=== PATIENT | male | born 1985 | race Caucasian/White ===

== ENCOUNTER 2023-10-28 10:33 | Emergency (ER) | payer SELFPAY ==
[~2023-10-28] VITALS: Ht 185.4 cm; Wt 74.8 kg
[~2023-10-28 10:33] MED LIST: AUGMENTIN 875875 MG PO; CEPHALEXIN500 M1 PO; HYDROCODONE BIT1 T11 PO; KEFLEX500 MG PO; Motrin,Rufen800 MG PO
[2023-10-28 11:30] LABS: HEMATOCRIT 46.2 % (42.0-52.0); MANUAL DIFF REFLEX YES; MEAN CORPUSCULAR HGB 31.8 pg (27.0-31.0); MEAN CORPUSCULAR HGB CONC 36.1 g/dl (33.0-37.0); MEAN PLATELET VOLUME 9.7 fl (9.6-12.3); PLATELET COUNT AUTOMATED 175 10*3/uL (130-400); RED BLOOD COUNT 5.25 10*6/uL (4.50-5.90); RED CELL DISTRI WIDTH 11.9 % (0-14.5); WHITE BLOOD COUNT 3.9 10*3/uL (4.8-10.8)
[2023-10-28 11:42] LABS: ACT PARTIAL THROMBO TIME 25.9 SECONDS (20.0-32.1)
[2023-10-28 11:53] LABS: ALKALINE PHOSPHATASE 94 U/L (46-116); BUN 13 mg/dl (9-23); CHLORIDE 98 mmol/L (98-107); LIPASE 26 U/L (12-53); POTASSIUM 4.1 mmol/L (3.4-5.1); SGPT/ALT 11 U/L (5-49); TOTAL PROTEIN 7.2 gm/dL (6.0-8.0)
[2023-10-28 12:04] LABS: TOTAL CELLS COUNTED 100 #CELLS
[2023-10-28 12:05] LABS: PLATELET SUFFICIENCY NORMAL (NORMAL)
[2023-10-28 12:47] LABS: BILIRUBIN Negative (Negative); BLOOD Negative (Negative); CLARITY Clear (Clear); COLOR Yellow (Yellow); GLUCOSE 3+ (Negative); KETONE 4+ (Negative); LEUKO ESTERASE Negative (Negative); NITRITE Negative (Negative); PH 5.5 (4.5-8.0); SPECIFIC GRAVITY >= 1.030 (1.001-1.030); UROBILINOGEN 0.2 E.U./dl (0.0-1.0)
[2023-10-28 12:57] LABS: BACTERIA TRACE; EPITHELIAL CELLS 0-2; MUCOUS 1+; RBC 0-2 rbc/hpf (0-2); WBC 0-2 wbc/hpf (0-5)
== END 2023-10-28 14:01 | disposition home or self-care (01) ==
LOC: ED 10:33
PROVIDERS: Emergency Medicine
DX: S30.22XA Contusion of scrotum and testes, initial encounter (principal); X58.XXXA Exposure to other specified factors, initial encounter; Y93.89 Activity, other specified; Y92.89 Other specified places as the place of occurrence of the external cause; Y99.8 Other external cause status

== ENCOUNTER 2023-12-17 11:59 | Inpatient (IN) | payer SELFPAY ==
[~2023-12-17] VITALS: Ht 182.8 cm; Wt 72.6 kg
[2023-12-17 12:18] VITALS: BP 117/74
[2023-12-17] MEDS ORDERED: NOVOLIN R100 UNIT/1 SQ (12:31)
[2023-12-17 12:43] LABS: BASO # 0.1 10*3/uL (0.0-0.1); BASO % 0.3 % (0.0-1.0); HEMATOCRIT 46.5 % (42.0-52.0); LYMPH # 1.1 10*3/uL (1.3-4.4); LYMPH % 7.2 % (27.0-41.0); MEAN CELL VOLUME 92.3 fl (80.0-94.0); MEAN CORPUSCULAR HGB 31.3 pg (27.0-31.0); MEAN PLATELET VOLUME 9.3 fl (9.6-12.3); MONO # 0.9 10*3/uL (0.1-1.0); MONO % 5.6 % (3.0-9.0); NEUT # 13.3 10*3/uL (2.3-7.9); NEUT % 86.5 % (47.0-73.0); PLATELET COUNT AUTOMATED 246 10*3/uL (130-400); RED BLOOD COUNT 5.04 10*6/uL (4.50-5.90); RED CELL DISTRI WIDTH 12.2 % (0-14.5); WHITE BLOOD COUNT 15.3 10*3/uL (4.8-10.8)
[2023-12-17 13:11] LABS: ALKALINE PHOSPHATASE 114 U/L (46-116); BUN 19 mg/dl (9-23); CHLORIDE 96 mmol/L (98-107); LIPASE 23 U/L (12-53); POTASSIUM 4.8 mmol/L (3.4-5.1); SGPT/ALT 18 U/L (5-49); TOTAL PROTEIN 7.5 gm/dL (6.0-8.0)
[2023-12-17 14:01] LABS: BILIRUBIN Negative (Negative); BLOOD Negative (Negative); CLARITY Clear (Clear); COLOR Yellow (Yellow); GLUCOSE 3+ (Negative); KETONE 3+ (Negative); LEUKO ESTERASE Negative (Negative); NITRITE Negative (Negative); PH 5.5 (4.5-8.0); SPECIFIC GRAVITY >= 1.030 (1.001-1.030); UROBILINOGEN 0.2 E.U./dl (0.0-1.0)
[2023-12-17 16:07] VITALS: BP 107/58
[2023-12-17 20:00] VITALS: BP 107/58
[2023-12-17 21:36] LABS: BUN 14 mg/dl (9-23); CHLORIDE 104 mmol/L (98-107); POTASSIUM 4.2 mmol/L (3.4-5.1)
[2023-12-18 07:03] LABS: BASO % 0.2 % (0.0-1.0); EOS % 0.1 % (1.0-4.0); HEMATOCRIT 42.8 % (42.0-52.0); LYMPH # 1.5 10*3/uL (1.3-4.4); MEAN CELL VOLUME 94.1 fl (80.0-94.0); MEAN CORPUSCULAR HGB CONC 32.9 g/dl (33.0-37.0); MEAN PLATELET VOLUME 9.4 fl (9.6-12.3); MONO # 0.7 10*3/uL (0.1-1.0); MONO % 5.6 % (3.0-9.0); NEUT # 10.4 10*3/uL (2.3-7.9); NEUT % 81.7 % (47.0-73.0); PLATELET COUNT AUTOMATED 198 10*3/uL (130-400); RED BLOOD COUNT 4.55 10*6/uL (4.50-5.90); RED CELL DISTRI WIDTH 12.2 % (0-14.5); WHITE BLOOD COUNT 12.7 10*3/uL (4.8-10.8)
[2023-12-18 07:17] LABS: ACT PARTIAL THROMBO TIME 24.8 SECONDS (20.0-32.1)
[2023-12-18 07:35] LABS: ALKALINE PHOSPHATASE 95 U/L (46-116); BUN 14 mg/dl (9-23); CHLORIDE 102 mmol/L (98-107); CHOLESTEROL 163 mg/dL (<200); FREE T4 1.19 ng/dl (0.89-1.76); LDL CHOLESTEROL 80 mg/dL (9-159); POTASSIUM 4.2 mmol/L (3.4-5.1); SGPT/ALT 13 U/L (5-49); TOTAL PROTEIN 6.2 gm/dL (6.0-8.0); TRIGLYCERIDES 147 mg/dl (<150)
[2023-12-18 07:45] LABS: VITAMIN D, 25-HYDROXY 26.5 ng/mL (30-100)
[2023-12-18 08:00] VITALS: BP 136/80
[2023-12-18 10:00] VITALS: BP 111/62
[2023-12-18 12:00] VITALS: BP 111/62
[2023-12-18 14:41] LABS: BUN 13 mg/dl (9-23); CHLORIDE 105 mmol/L (98-107); POTASSIUM 3.6 mmol/L (3.4-5.1)
[2023-12-18 16:00] VITALS: BP 135/76
[2023-12-18 18:00] LABS: BUN 12 mg/dl (9-23); CHLORIDE 107 mmol/L (98-107); POTASSIUM 3.4 mmol/L (3.4-5.1)
[2023-12-18 20:00] VITALS: BP 120/67
[2023-12-19] VITALS: BP 124/82
[2023-12-19 04:00] VITALS: BP 125/92
[2023-12-19 04:45] LABS: BUN 9 mg/dl (9-23); CHLORIDE 105 mmol/L (98-107); POTASSIUM 2.9 mmol/L (3.4-5.1)
[2023-12-19 08:00] VITALS: BP 120/74
[2023-12-19 10:54] LABS: BUN 9 mg/dl (9-23); CHLORIDE 102 mmol/L (98-107); POTASSIUM 3.4 mmol/L (3.4-5.1)
[2023-12-19 12:00] VITALS: BP 135/83
[2023-12-19 16:00] VITALS: BP 124/85
[2023-12-19 17:12] LABS: BUN 9 mg/dl (9-23); CHLORIDE 103 mmol/L (98-107); POTASSIUM 3.7 mmol/L (3.4-5.1)
[2023-12-19 20:00] VITALS: BP 107/67
[2023-12-20] VITALS: BP 118/86
[2023-12-20 04:00] VITALS: BP 122/88
[2023-12-20 06:22] LABS: ALKALINE PHOSPHATASE 93 U/L (46-116); BUN 10 mg/dl (9-23); CHLORIDE 99 mmol/L (98-107); POTASSIUM 3.2 mmol/L (3.4-5.1); SGPT/ALT 11 U/L (5-49); TOTAL PROTEIN 6.1 gm/dL (6.0-8.0)
[2023-12-20 08:00] VITALS: BP 135/85
[2023-12-20] MEDS ORDERED: HUMALOG100 UNIT/1 SC (11:50)
[2023-12-20] MEDS ORDERED: LANTUS SOL100 UNIT/1 SC (11:50)
[2023-12-20] MEDS ORDERED: VITAMIN D325 MCG PO (11:51)
[2023-12-20] MEDS ORDERED: K-TAB20 MEQ PO (11:51)
== END 2023-12-20 12:39 | disposition home or self-care (01) | DRG 638 ==
LOC: ED 11:59 → ICCU 15:41 → EDHOLD 15:41 → ICCU 12-18 09:38
PROVIDERS: Internal Medicine; Nurse Practitioner Family; Student in an Organized Health Care Education/Training Program; ADMIT Internal Medicine; ATTEND Internal Medicine
DX: E13.10 Other specified diabetes mellitus with ketoacidosis without coma (principal); E87.1 Hypo-osmolality and hyponatremia; D72.825 Bandemia; Z79.4 Long term (current) use of insulin

== ENCOUNTER → 2024-02-13 | Outpatient (CLI) | payer SELFPAY ==
[~2024-02-13] MED LIST changes: +HUMALOG100 UNIT/1 SC; +K-TAB20 MEQ PO; +LANTUS SOL100 UNIT/1 SC; +NOVOLIN R100 UNIT/1 SQ; +VITAMIN D325 MCG PO
[2024-02-13 11:59] LABS: URINE CREATININE RANDOM 79.01 mg/dL
== END | disposition home or self-care (01) ==
LOC: RESCLI 09:27 → LAB 09:27
PROVIDERS: Student in an Organized Health Care Education/Training Program; ATTEND Internal Medicine
DX: E11.8 Type 2 diabetes mellitus with unspecified complications (principal); E55.9 Vitamin D deficiency, unspecified; N52.9 Male erectile dysfunction, unspecified; Z98.890 Other specified postprocedural states; Z79.899 Other long term (current) drug therapy

== ENCOUNTER 2024-06-12 09:02 | Inpatient (IN) | payer SELFPAY ==
[~2024-06-12] VITALS: Ht 185.4 cm; Wt 73.9 kg
[2024-06-12] MEDS ORDERED: SODIUM CHLORIDE 0.9% 1,000 ML IV ONE ×3 (09:45→11:15)
[2024-06-12 09:51] VITALS: BP 91/55
[2024-06-12 10:05] LABS: HEMATOCRIT 53.5 % (42.0-52.0); MEAN CELL VOLUME 101.7 fl (80.0-94.0); MEAN CORPUSCULAR HGB 31.7 pg (27.0-31.0); MEAN CORPUSCULAR HGB CONC 31.2 g/dl (33.0-37.0); MEAN PLATELET VOLUME 10.2 fl (9.6-12.3); PLATELET COUNT AUTOMATED 379 10*3/uL (130-400); RED BLOOD COUNT 5.26 10*6/uL (4.50-5.90); RED CELL DISTRI WIDTH 12.4 % (0-14.5); WHITE BLOOD COUNT 24.9 10*3/uL (4.8-10.8)
[2024-06-12 10:13] LABS: MANUAL DIFF REFLEX YES
[2024-06-12 10:31] LABS: BASOPHILS 1 % (0-1); BURR CELLS FEW; PLATELET SUFFICIENCY NORMAL (NORMAL); POLYCHROMASIA SLIGHT; TOTAL CELLS COUNTED 100 #CELLS
[2024-06-12 10:33] LABS: ALKALINE PHOSPHATASE 150 U/L (46-116); BUN 22 mg/dl (9-23); CHLORIDE 89 mmol/L (98-107); LIPASE 58 U/L (12-53); POTASSIUM 5.9 mmol/L (3.4-5.1); SGPT/ALT 28 U/L (5-49); TOTAL PROTEIN 7.8 gm/dL (6.0-8.0)
[2024-06-12] MEDS ORDERED: INSULIN REGULAR, HUMAN 1 UNIT/0.01 ML IV ONE (10:45)
[2024-06-12] MEDS ORDERED: POTASSIUM CHLORIDE 20 MEQ/100 ML BAG IV PRN (11:15)
[2024-06-12] MEDS ORDERED: POTASSIUM CHLORIDE 20 MEQ TAB PO PRN (11:15)
[2024-06-12] MEDS ORDERED: SODIUM CHLORIDE 0.9% 1,000 ML IV SCH (11:15)
[2024-06-12] MEDS ORDERED: INSULIN REGULAR IN 0.9 % NACL 100 ML IV SCH (11:15)
[2024-06-12] MEDS ORDERED: SODIUM CHLORIDE 0.9% 2,000 ML IV ONE (11:29)
[2024-06-12] MEDS ORDERED: Ondansetron Hydrochloride 4 MG/2 ML VIAL IV PRN (12:05)
[2024-06-12 12:17] LABS: BILIRUBIN Negative (Negative); BLOOD Trace-Lysed (Negative); CLARITY Clear (Clear); COLOR Yellow (Yellow); GLUCOSE 3+ (Negative); KETONE 3+ (Negative); LEUKO ESTERASE Negative (Negative); NITRITE Negative (Negative); PH 5.5 (4.5-8.0); SPECIFIC GRAVITY 1.025 (1.001-1.030); UROBILINOGEN 0.2 E.U./dl (0.0-1.0)
[2024-06-12 12:31] LABS: BACTERIA 1+; MUCOUS 1+; RBC 0-2 rbc/hpf (0-2)
[2024-06-12 13:19] LABS: BUN 25 mg/dl (9-23); CHLORIDE 99 mmol/L (98-107); POTASSIUM 5.2 mmol/L (3.4-5.1)
[2024-06-12] MEDS ORDERED: POTASSIUM CL/0.9% SODIUM CL 1,000 ML IV SCH (14:55)
[2024-06-12 15:06] LABS: BUN 18 mg/dl (9-23); CHLORIDE 107 mmol/L (98-107); POTASSIUM 4.5 mmol/L (3.4-5.1)
[2024-06-12 16:00] VITALS: BP 102/59
[2024-06-12] MEDS ORDERED: Promethazine Hydrochloride 25 MG/ML VIAL IV PRN (16:50)
[2024-06-12] MEDS ORDERED: POTASSIUM CL D5/.45NS SOL. 1,000 ML IV ONE (18:00)
[2024-06-12 19:17] LABS: BUN 19 mg/dl (9-23); CHLORIDE 114 mmol/L (98-107); POTASSIUM 4.1 mmol/L (3.4-5.1)
[2024-06-12 20:00] VITALS: BP 138/76
[2024-06-12 23:35] LABS: BUN 18 mg/dl (9-23); CHLORIDE 113 mmol/L (98-107); POTASSIUM 3.7 mmol/L (3.4-5.1)
[2024-06-13] VITALS: BP 124/55
[2024-06-13] MEDS ORDERED: DEXTROSE 5% SALINE 0.45% 1,000 ML IV SCH (01:10)
[2024-06-13 03:12] LABS: BASO % 0.2 % (0.0-1.0); HEMATOCRIT 41.3 % (42.0-52.0); LYMPH # 1.1 10*3/uL (1.3-4.4); LYMPH % 7.1 % (27.0-41.0); MEAN CORPUSCULAR HGB 31.8 pg (27.0-31.0); MEAN CORPUSCULAR HGB CONC 35.6 g/dl (33.0-37.0); MEAN PLATELET VOLUME 9.2 fl (9.6-12.3); MONO # 1.2 10*3/uL (0.1-1.0); MONO % 7.7 % (3.0-9.0); NEUT # 13.5 10*3/uL (2.3-7.9); NEUT % 84.6 % (47.0-73.0); RED BLOOD COUNT 4.62 10*6/uL (4.50-5.90); RED CELL DISTRI WIDTH 12.9 % (0-14.5)
[2024-06-13 03:16] LABS: MEAN CELL VOLUME 89.4 fl (80.0-94.0); PLATELET COUNT AUTOMATED 242 10*3/uL (130-400)
[2024-06-13 03:41] LABS: BUN 17 mg/dl (9-23); CHLORIDE 113 mmol/L (98-107); POTASSIUM 3.5 mmol/L (3.4-5.1)
[2024-06-13 04:00] VITALS: BP 105/57
[2024-06-13] MEDS ORDERED: Pantoprazole Sodium 40 MG VIAL IV SCH (06:00)
[2024-06-13] MEDS ORDERED: DEXTROSE 10% 250 ML IV SCH (06:40)
[2024-06-13] MEDS ORDERED: DEXTROSE 10 % IN WATER 250 ML IV ONE (07:02)
[2024-06-13 07:52] LABS: BUN 17 mg/dl (9-23); CHLORIDE 109 mmol/L (98-107); POTASSIUM 3.6 mmol/L (3.4-5.1)
[2024-06-13 08:00] VITALS: BP 108/59
[2024-06-13] MEDS ORDERED: DEXTROSE 10 % IN WATER 250 ML IV PRN (08:35)
[2024-06-13] MEDS ORDERED: Insulin Glargine, Recombinan 1 UNIT/0.01 ML SC SCH ×2 (10:00→22:00)
[2024-06-13] MEDS ORDERED: INSULIN LISPRO 1 UNIT/0.01 ML SQ SCH (11:30)
[2024-06-13 12:00] VITALS: BP 112/67
[2024-06-13 16:00] VITALS: BP 109/62
[2024-06-13] MEDS ORDERED: Metoclopramide Hydrochloride 10 MG/2 ML AMP IV SCH (16:00)
[2024-06-13 17:32] LABS: BUN 12 mg/dl (9-23); CHLORIDE 106 mmol/L (98-107); POTASSIUM 3.5 mmol/L (3.4-5.1)
[2024-06-13 20:00] VITALS: BP 118/63
[2024-06-14] VITALS: BP 109/69
[2024-06-14 04:00] VITALS: BP 117/77
[2024-06-14 05:08] LABS: BUN 11 mg/dl (9-23); CHLORIDE 104 mmol/L (98-107); POTASSIUM 3.3 mmol/L (3.4-5.1)
[2024-06-14 06:26] LABS: BASO % 0.2 % (0.0-1.0); EOS % 0.1 % (1.0-4.0); LYMPH # 2.6 10*3/uL (1.3-4.4); LYMPH % 28.8 % (27.0-41.0); MEAN CELL VOLUME 91.3 fl (80.0-94.0); MEAN CORPUSCULAR HGB 31.6 pg (27.0-31.0); MEAN CORPUSCULAR HGB CONC 34.6 g/dl (33.0-37.0); MEAN PLATELET VOLUME 9.9 fl (9.6-12.3); MONO # 0.7 10*3/uL (0.1-1.0); MONO % 7.1 % (3.0-9.0); NEUT # 5.8 10*3/uL (2.3-7.9); NEUT % 63.6 % (47.0-73.0); PLATELET COUNT AUTOMATED 170 10*3/uL (130-400); RED BLOOD COUNT 4.27 10*6/uL (4.50-5.90); RED CELL DISTRI WIDTH 12.9 % (0-14.5); WHITE BLOOD COUNT 9.1 10*3/uL (4.8-10.8)
[2024-06-14 08:00] VITALS: BP 127/77
[2024-06-14] MEDS ORDERED: POTASSIUM CHLORIDE 20 MEQ TAB PO ONE (08:55)
[2024-06-14] MEDS ORDERED: REGLAN5 MG PO (09:05)
[2024-06-14] MEDS ORDERED: LANTUS SOL100 UNIT/1 SC (09:44)
[2024-06-14] MEDS ORDERED: HUMALOG100 UNIT/1 SC (09:44)
== END 2024-06-14 10:00 | disposition home or self-care (01) | DRG 637 ==
LOC: ED 09:02 → EDHOLD 10:51 → ICCU 15:25
PROVIDERS: Internal Medicine; Student in an Organized Health Care Education/Training Program; ADMIT Student in an Organized Health Care Education/Training Program; ATTEND Student in an Organized Health Care Education/Training Program
DX: E10.10 Type 1 diabetes mellitus with ketoacidosis without coma (principal); N17.0 Acute kidney failure with tubular necrosis; R65.11 Systemic inflammatory response syndrome (SIRS) of non-infectious origin with acute organ dysfunction; E87.1 Hypo-osmolality and hyponatremia; D72.828 Other elevated white blood cell count; E87.5 Hyperkalemia; E55.9 Vitamin D deficiency, unspecified; D75.89 Other specified diseases of blood and blood-forming organs

== ENCOUNTER → 2024-06-28 | Outpatient (CLI) | payer SELFPAY ==
[~2024-06-28] MED LIST changes: +REGLAN5 MG PO
== END | disposition home or self-care (01) ==
LOC: RESCLI 16:54
PROVIDERS: ATTEND Internal Medicine
DX: E11.40 Type 2 diabetes mellitus with diabetic neuropathy, unspecified (principal); E55.9 Vitamin D deficiency, unspecified; E11.8 Type 2 diabetes mellitus with unspecified complications; N52.9 Male erectile dysfunction, unspecified; R00.0 Tachycardia, unspecified; E87.1 Hypo-osmolality and hyponatremia; Z98.890 Other specified postprocedural states; Z79.899 Other long term (current) drug therapy

== ENCOUNTER → 2024-10-05 | Outpatient (CLI) | payer SELFPAY | END | disposition home or self-care (01) | LOC: RESCLI 12:26 | PROVIDERS: ATTEND Internal Medicine | DX: E55.9 Vitamin D deficiency, unspecified (principal); E11.8 Type 2 diabetes mellitus with unspecified complications; N52.9 Male erectile dysfunction, unspecified; G62.9 Polyneuropathy, unspecified; N18.9 Chronic kidney disease, unspecified; I25.10 Atherosclerotic heart disease of native coronary artery without angina pectoris; K92.1 Melena; Z98.890 Other specified postprocedural states; Z79.899 Other long term (current) drug therapy ==

== ENCOUNTER 2025-01-28 11:31 | Emergency (ER) | payer SELFPAY ==
[~2025-01-28] VITALS: Ht 185.4 cm; Wt 81.6 kg
[2025-01-28 11:55] LABS: BASO # 0.1 10*3/uL (0.0-0.1); BASO % 0.6 % (0.0-1.0); EOS # 0.2 10*3/uL (0.0-0.4); EOS % 1.6 % (1.0-4.0); MEAN CELL VOLUME 92.3 fl (80.0-94.0); MEAN CORPUSCULAR HGB 30.5 pg (27.0-31.0); MEAN PLATELET VOLUME 9.3 fl (9.6-12.3); MONO # 0.5 10*3/uL (0.1-1.0); MONO % 4.8 % (3.0-9.0); NEUT # 7.5 10*3/uL (2.3-7.9); PLATELET COUNT AUTOMATED 219 10*3/uL (130-400); RED BLOOD COUNT 5.09 10*6/uL (4.50-5.90); RED CELL DISTRI WIDTH 12.6 % (0-14.5); WHITE BLOOD COUNT 9.9 10*3/uL (4.8-10.8)
[2025-01-28 12:23] LABS: BUN 16 mg/dl (9-23); CHLORIDE 97 mmol/L (98-107); POTASSIUM 4.5 mmol/L (3.4-5.1)
[2025-01-28] MEDS ORDERED: SODIUM CHLORIDE 0.9% 1,000 ML IV ONE (12:30)
[2025-01-28] MEDS ORDERED: INSULIN REGULAR, HUMAN 1 UNIT/0.01 ML IV ONE (12:35)
== END 2025-01-28 13:32 | disposition home or self-care (01) ==
LOC: ED 11:31
PROVIDERS: Physician Assistant Medical
DX: B34.9 Viral infection, unspecified (principal); Z20.822 Contact with and (suspected) exposure to COVID-19; E10.65 Type 1 diabetes mellitus with hyperglycemia; R19.7 Diarrhea, unspecified; Z79.4 Long term (current) use of insulin; Z90.89 Acquired absence of other organs

== ENCOUNTER → 2025-06-26 | Outpatient (CLI) | payer SELFPAY | END | disposition home or self-care (01) | LOC: RESCLI 09:40 → LAB 09:40 | PROVIDERS: ATTEND Internal Medicine | DX: I10 Essential (primary) hypertension (principal); N52.9 Male erectile dysfunction, unspecified; E11.8 Type 2 diabetes mellitus with unspecified complications; E11.40 Type 2 diabetes mellitus with diabetic neuropathy, unspecified ==

== ENCOUNTER 2025-09-05 23:34 | Emergency (ER) | payer SELFPAY ==
[~2025-09-05] VITALS: Ht 185.4 cm; Wt 81.6 kg
[2025-09-05] MEDS ORDERED: Ondansetron Hydrochloride 4 MG/2 ML VIAL IV ONE (23:55)
[2025-09-05] MEDS ORDERED: INSULIN REGULAR, HUMAN 1 UNIT/0.01 ML IV ONE (23:55)
[2025-09-05] MEDS ORDERED: SODIUM CHLORIDE 0.9% 1,000 ML IV ONE ×2 (23:55)
[2025-09-06 00:15] LABS: BASO # 0.0 10*3/uL (0.0-0.1); BASO % 0.3 % (0.0-1.0); EOS # 0.0 10*3/uL (0.0-0.4); EOS % 0.3 % (1.0-4.0); MEAN CELL VOLUME 91.4 fl (80.0-94.0); MEAN CORPUSCULAR HGB 30.6 pg (27.0-31.0); MEAN PLATELET VOLUME 9.6 fl (9.6-12.3); MONO # 0.4 10*3/uL (0.1-1.0); MONO % 3.7 % (3.0-9.0); NEUT # 10.1 10*3/uL (2.3-7.9); NEUT % 85.8 % (47.0-73.0); NUCLEATED RED BLOOD CELL 0.0 % (0.0-0.0); NUCLEATED RED BLOOD CELL 0.0 10*3/uL (0.0-0.0); PLATELET COUNT AUTOMATED 222 10*3/uL (130-400); RED CELL DISTRI WIDTH 11.7 % (0-14.5)
[2025-09-06] MEDS ORDERED: Ondansetron Hydrochloride 4 MG/2 ML VIAL IV ONE (01:10)
[2025-09-06 01:14] LABS: BUN 21 mg/dl (9-23)
[2025-09-06] MEDS ORDERED: Promethazine Hydrochloride 25 MG/ML VIAL IM ONE (01:15)
[2025-09-06] MEDS ORDERED: Phenergan25 MG PO (02:35)
[2025-09-07] MEDS ORDERED: LANTUS100 UNIT/1 SC (15:40)
== END 2025-09-06 03:07 | disposition home or self-care (01) ==
LOC: ED 23:34
PROVIDERS: Internal Medicine
DX: K52.9 Noninfective gastroenteritis and colitis, unspecified (principal); N17.9 Acute kidney failure, unspecified; E11.65 Type 2 diabetes mellitus with hyperglycemia; R11.2 Nausea with vomiting, unspecified; Z90.89 Acquired absence of other organs

== ENCOUNTER 2025-09-07 11:59 | Inpatient (IN) | payer SELFPAY ==
[~2025-09-07] VITALS: Ht 185.4 cm; Wt 81.6 kg
[~2025-09-07 11:59] MED LIST changes: +Phenergan25 MG PO
[2025-09-07 12:07] VITALS: BP 134/91
[2025-09-07] MEDS ORDERED: Promethazine Hydrochloride 25 MG/ML VIAL IV ONE (12:15)
[2025-09-07] MEDS ORDERED: SODIUM CHLORIDE 0.9% 1,000 ML IV ONE ×3 (12:15→15:42)
[2025-09-07 12:27] LABS: BASO # 0.0 10*3/uL (0.0-0.1); BASO % 0.5 % (0.0-1.0); EOS # 0.0 10*3/uL (0.0-0.4); EOS % 0.1 % (1.0-4.0); MEAN CELL VOLUME 93.3 fl (80.0-94.0); MEAN CORPUSCULAR HGB 30.6 pg (27.0-31.0); MEAN PLATELET VOLUME 9.4 fl (9.6-12.3); MONO # 0.2 10*3/uL (0.1-1.0); MONO % 2.8 % (3.0-9.0); NEUT # 6.1 10*3/uL (2.3-7.9); NEUT % 78.8 % (47.0-73.0); NUCLEATED RED BLOOD CELL 0.0 % (0.0-0.0); NUCLEATED RED BLOOD CELL 0.0 10*3/uL (0.0-0.0); PLATELET COUNT AUTOMATED 210 10*3/uL (130-400); RED CELL DISTRI WIDTH 11.4 % (0-14.5)
[2025-09-07 12:48] LABS: BUN 23 mg/dl (9-23)
[2025-09-07 13:27] LABS: VENOUS BLOOD GAS O2 SAT 92.8 % (60.0-85.0)
[2025-09-07] MEDS ORDERED: Ondansetron Hydrochloride 4 MG/2 ML VIAL IV ONE (13:55)
[2025-09-07] MEDS ORDERED: INSULIN REGULAR IN 0.9 % NACL 100 ML IV SCH ×2 (13:55→14:25)
[2025-09-07] MEDS ORDERED: POTASSIUM CHLORIDE 20 MEQ/100 ML BAG IV PRN (14:25)
[2025-09-07] MEDS ORDERED: POTASSIUM CHLORIDE 20 MEQ TAB PO PRN (14:25)
[2025-09-07 14:30] VITALS: BP 157/91
[2025-09-07] MEDS ORDERED: SODIUM CHLORIDE 0.9% 1,000 ML IV SCH ×2 (14:35→15:40)
[2025-09-07] MEDS ORDERED: Ondansetron Hydrochloride 4 MG/2 ML VIAL IV PRN (14:35)
[2025-09-07] MEDS ORDERED: LANTUS100 UNIT/1 SC (15:40)
[2025-09-07 16:00] VITALS: BP 113/59
[2025-09-07 16:47] LABS: BILIRUBIN Negative (Negative); BLOOD Negative (Negative); CLARITY Clear (Clear); COLOR Yellow (Yellow); KETONE 4+ (Negative); LEUKO ESTERASE Negative (Negative); NITRITE Negative (Negative); PH 5.0 (4.5-8.0); SPECIFIC GRAVITY >= 1.030 (1.001-1.030); UROBILINOGEN 0.2 E.U./dl (0.0-1.0)
[2025-09-07 16:56] LABS: BACTERIA TRACE; FINE GRANULAR CAST 0-2; MUCOUS 2+; RBC 0-2 rbc/hpf (0-2); WBC 0-2 wbc/hpf (0-5)
[2025-09-07] MEDS ORDERED: DEXTROSE 5% SALINE 0.45% 1,000 ML IV ONE ×2 (17:20→23:10)
[2025-09-07 18:21] LABS: BUN 17 mg/dl (9-23)
[2025-09-07 20:00] VITALS: BP 107/55
[2025-09-07 22:32] LABS: BUN 16 mg/dl (9-23)
[2025-09-08] VITALS: BP 151/98
[2025-09-08 01:55] LABS: BASO # 0.0 10*3/uL (0.0-0.1); BASO % 0.4 % (0.0-1.0); EOS # 0.0 10*3/uL (0.0-0.4); EOS % 0.0 % (1.0-4.0); MEAN CELL VOLUME 91.2 fl (80.0-94.0); MEAN CORPUSCULAR HGB 30.9 pg (27.0-31.0); MEAN PLATELET VOLUME 9.2 fl (9.6-12.3); MONO # 0.6 10*3/uL (0.1-1.0); MONO % 6.1 % (3.0-9.0); NEUT # 7.7 10*3/uL (2.3-7.9); NEUT % 75.8 % (47.0-73.0); NUCLEATED RED BLOOD CELL 0.0 % (0.0-0.0); NUCLEATED RED BLOOD CELL 0.0 10*3/uL (0.0-0.0); PLATELET COUNT AUTOMATED 187 10*3/uL (130-400); RED CELL DISTRI WIDTH 11.6 % (0-14.5)
[2025-09-08] MEDS ORDERED: Promethazine Hydrochloride 25 MG TAB PO PRN (02:05)
[2025-09-08 02:14] LABS: BUN 15 mg/dl (9-23)
[2025-09-08] MEDS ORDERED: Insulin Glargine, Recombinan 1 UNIT/0.01 ML SC ONE (02:30)
[2025-09-08 04:00] VITALS: BP 145/87
[2025-09-08] MEDS ORDERED: DEXTROSE 50% 25 GM/50 ML VIAL IV PRN (04:05)
[2025-09-08 06:20] LABS: BASO # 0.0 10*3/uL (0.0-0.1); BASO % 0.2 % (0.0-1.0); EOS # 0.0 10*3/uL (0.0-0.4); EOS % 0.0 % (1.0-4.0); MEAN CELL VOLUME 92.6 fl (80.0-94.0); MEAN CORPUSCULAR HGB 30.0 pg (27.0-31.0); MEAN PLATELET VOLUME 9.8 fl (9.6-12.3); MONO # 0.3 10*3/uL (0.1-1.0); MONO % 3.1 % (3.0-9.0); NEUT # 9.6 10*3/uL (2.3-7.9); NEUT % 87.0 % (47.0-73.0); NUCLEATED RED BLOOD CELL 0.0 % (0.0-0.0); NUCLEATED RED BLOOD CELL 0.0 10*3/uL (0.0-0.0); PLATELET COUNT AUTOMATED 190 10*3/uL (130-400); RED CELL DISTRI WIDTH 11.5 % (0-14.5)
[2025-09-08 06:37] LABS: BUN 15 mg/dl (9-23)
[2025-09-08 06:43] LABS: FREE T4 1.36 ng/dl (0.89-1.76)
[2025-09-08] MEDS ORDERED: INSULIN LISPRO 1 UNIT/0.01 ML SQ SCH (07:30)
[2025-09-08 08:00] VITALS: BP 136/74
[2025-09-08 10:47] LABS: BUN 15 mg/dl (9-23)
[2025-09-08 12:00] VITALS: BP 117/59
[2025-09-08 14:17] LABS: BUN 14 mg/dl (9-23)
[2025-09-08 16:00] VITALS: BP 141/79
[2025-09-08 20:00] VITALS: BP 136/89
[2025-09-08 20:25] LABS: BUN 11 mg/dl (9-23)
[2025-09-08] MEDS ORDERED: Insulin Glargine, Recombinan 1 UNIT/0.01 ML SC SCH (22:00)
[2025-09-09 04:51] LABS: BUN 12 mg/dl (9-23)
[2025-09-09 06:19] LABS: BASO # 0.1 10*3/uL (0.0-0.1); BASO % 0.7 % (0.0-1.0); EOS # 0.0 10*3/uL (0.0-0.4); EOS % 0.6 % (1.0-4.0); MEAN CELL VOLUME 92.4 fl (80.0-94.0); MEAN CORPUSCULAR HGB 30.4 pg (27.0-31.0); MEAN PLATELET VOLUME 9.9 fl (9.6-12.3); MONO # 0.5 10*3/uL (0.1-1.0); MONO % 7.8 % (3.0-9.0); NEUT # 3.0 10*3/uL (2.3-7.9); NEUT % 44.7 % (47.0-73.0); NUCLEATED RED BLOOD CELL 0.0 % (0.0-0.0); NUCLEATED RED BLOOD CELL 0.0 10*3/uL (0.0-0.0); PLATELET COUNT AUTOMATED 173 10*3/uL (130-400); RED CELL DISTRI WIDTH 11.2 % (0-14.5)
[2025-09-09] MEDS ORDERED: POTASSIUM CHLORIDE 20 MEQ TAB PO ONE (07:20)
[2025-09-09 08:00] VITALS: BP 148/88
[2025-09-09] MEDS ORDERED: Phenergan25 MG PO (10:29)
== END 2025-09-09 11:30 | disposition home or self-care (01) | DRG 637 ==
LOC: ED 11:59 → EDHOLD 14:08 → ICCU 14:08
PROVIDERS: Nurse Practitioner Family; Student in an Organized Health Care Education/Training Program; ADMIT Internal Medicine; ATTEND Internal Medicine
DX: E10.10 Type 1 diabetes mellitus with ketoacidosis without coma (principal); N17.0 Acute kidney failure with tubular necrosis; E55.9 Vitamin D deficiency, unspecified; Z90.49 Acquired absence of other specified parts of digestive tract